=== PATIENT | female | born 1960 | race Caucasian/White ===

== ENCOUNTER 2018-12-01 16:22 | Emergency (ER) | payer SELFPAY ==
[~2018-12-01] VITALS: Ht 152.4 cm; Wt 71.2 kg
[2018-12-01 16:33] VITALS: BP 135/71
[2018-12-01] MEDS ORDERED: TDAP [DIPH/PERTUSSIS/TET] 0.5 ML VIAL IM ONE ×2 (16:41→17:00)
[2018-12-01] MEDS ORDERED: GUAI600T53 PO (17:17)
[2018-12-01] MEDS ORDERED: ALBU8.5H8 IH (17:17)
== END 2018-12-01 17:24 | disposition home or self-care (01) ==
LOC: ER 16:26
DX: S61.218A Laceration without foreign body of other finger without damage to nail, initial encounter (principal); F41.9 Anxiety disorder, unspecified; W26.8XXA Contact with other sharp object(s), not elsewhere classified, initial encounter; Y93.89 Activity, other specified; Y92.89 Other specified places as the place of occurrence of the external cause; Y99.0 Civilian activity done for income or pay
CPT/HCPCS: 90715